=== PATIENT | male | born 1955 | race Caucasian/White ===

== ENCOUNTER 2018-07-12 08:31 | Day surgery (SDC) | payer BC ==
[~2018-07-12 08:31] MED LIST: LIDOCAINE HCL 1% MPF 30 SOL ONE; PROPOFOL 500 MG/50 ML EMU IV ONE
[2018-07-12 11:48] VITALS: TEMP 97.6
[2018-07-12 11:50] VITALS: BP 112/71; PULSE 59; RESP 14; O2SAT 94
== END 2018-07-12 10:50 | disposition home or self-care (01) ==
LOC: SURG 08:31
PROVIDERS: ATTEND Surgery
DX: Z12.11 Encounter for screening for malignant neoplasm of colon (principal); E11.9 Type 2 diabetes mellitus without complications; K57.32 Diverticulitis of large intestine without perforation or abscess without bleeding
CPT/HCPCS: J2001; J2704